=== PATIENT | female | born 1945 | race Caucasian/White ===

== ENCOUNTER 2018-09-26 11:22 | Emergency (ER) | payer MEDICARE, BC ==
--- NOTE | 2018-09-26 11:44 | UC ---
Lower Extremity/Ankle HPI - HPI Summary HPI Summary: 72 y/o female presents to the urgent care c/o pt states her lt ankle started to bother her about 3 weeks ago. pt had an xray and that was negative. pt states that she was told to take ibuprofen but her ankle still aches. pt has been going to chiropractor for the past 2 weeks and this has helped. pt states that it is difficult to walk. - History of Current Complaint Chief Complaint: UCLowerExtremity Stated Complaint: LT ANKLE INJURY Time Seen by Provider: 09/26/18 11:42 Hx Obtained From: Patient Pain Intensity: 7 - Allergies/Home Medications Allergies/Adverse Reactions: Allergies Allergy/AdvReac Type Severity Reaction Status Date / Time Penicillins Allergy Rash Verified 09/26/18 11:35 Home Medications: Home Medications Atorvastatin* [Lipitor*] 10 mg PO 1700 09/26/18 [History Confirmed 09/26/18] PMH/Surg Hx/FS Hx/Imm Hx - Surgical History Surgical History: Yes Surgery Procedure, Year, and Place: HYSTERECTOMY-AGE 26 - Family History Known Family History: Positive: Unknown - Social History Alcohol Use: Occasionally Substance Use Type: None Smoking Status (MU): Never Smoked Tobacco Physical Exam - Summary Physical Exam Summary: Vital Signs Reviewed: Yes General: well developed, well nourished obese female, sitting in the examining table w/o any apparent distress Eyes: Positive: Conjunctiva Clear - PERRLA, EOMI, ENT: Positive: Normal ENT inspection, Hearing grossly normal, Pharynx normal, TMs normal Neck: Positive: Supple, Nontender, No Lymphadenopathy Respiratory: Positive: Chest non-tender, Lungs clear, Normal breath sounds, No respiratory distress Cardiovascular: Positive: RRR, No Murmur, Pulses Normal, Brisk Capillary Refill Abdomen Description: Positive: Nontender, No Organomegaly, Soft. Negative: CVA Tenderness (R), CVA Tenderness (L) Bowel Sounds: Positive: Present Musculoskeletal: - Ankle: Pt is able to bear weight and ambulate w/ limping. The R ankle is without obvious asymmetry or deformity when compared to the L ankle. Decreased ROM due to pain. Moderate swelling at the lateral malleolus, with tenderness to palpation. No ecchymosis or bruising observed. Tenderness to palpation over the medial malleolus , no swelling observed. Talar tilt test is negative for ligament laxity to valgus or varus stress. Negative anterior drawer. Peroneal nerve is intact with strong eversion and plantar flexion. Positive sensation over the Rt foot and Rt ankle, positive pulses, capillary refill intact Neurological Exam: Normal Psychological Exam: Normal Skin: warm and dry Triage Information Reviewed: Yes Vital Signs: Initial Vital Signs Temp 98.4 F 09/26/18 11:30 Pulse 87 09/26/18 11:30 Resp 18 09/26/18 11:30 BP 185/78 09/26/18 11:30 Pulse Ox 99 09/26/18 11:30 Lower Extremity Course/Dx - Differential Dx/Diagnosis Provider Diagnosis: Left ankle tendonitis, Left ankle pain, Uncontrolled hypertension Discharge - Discharge Plan Condition: Stable Disposition: HOME Prescriptions: Naproxen TAB* [Naprosyn 250 mg TAB*] 250 mg PO Q8H PRN #30 tab PRN Reason: Pain Patient Education Materials: Tendinitis (ED) Referrals: Renan Santiago MD [Primary Care Provider] - 1 Week Ayaan Holt MD [Medical Doctor] - 1 Week Additional Instructions: 1-Please take Naproxen PO q8hrs prn after meals as directed to alleviate pain and swelling. 2-Please apply ice, keep your ankle immobilized with the splint. Avoid standing for long periods of ashley, elevate your ankle, avoid strenuous exercise. 3- Please f/u with Orthopedic Dr Holt or your PCP in 1 week is not improvement of symptoms for further evaluation and treatment. 4-Your BP is elevated today. Please take your BP medications and decrease salt in your diet, monitor BP and if it continues to be elevated please f/u with your PCP for further management. If you develop chest pain, dizziness, visual disturbances, SOB, or severe CANO please go immediately to the ER for further management - Billing Disposition and Condition Condition: STABLE Disposition: Home
== END 2018-09-26 12:05 | disposition home or self-care (01) ==
LOC: UCEAST 11:22
DX: M77.9 Enthesopathy, unspecified (principal); I10 Essential (primary) hypertension; Z88.0 Allergy status to penicillin
CPT/HCPCS: 99213; G0463

== ENCOUNTER 2019-03-20 11:35 | Emergency (ER) | payer MEDICARE, BC ==
[2019-03-20 11:58] VITALS: BP 176/80
--- NOTE | 2019-03-20 12:37 | UC ---
Ear Complaint HPI - HPI Summary HPI Summary: 73 yo female presents with LEFT earache. She tells me that this has been going on for about 2 weeks. Last week she saw her PCP and was given flonase for her symptoms. She has been using this with no relief. She feels some congestion in her sinuses, but mostly has popping in her left ear with decreased hearing and intermittent pain. She denies fever, chills, sore throat, cough. - History of Current Complaint Chief Complaint: UCEar Stated Complaint: EAR ACHE Time Seen by Provider: 03/20/19 12:31 Hx Obtained From: Patient Onset/Duration: Gradual Onset Severity Initially: Mild Severity Currently: Mild Pain Intensity: 2 Pain Scale Used: 0-10 Numeric - Allergies/Home Medications Allergies/Adverse Reactions: Allergies Allergy/AdvReac Type Severity Reaction Status Date / Time Penicillins Allergy Rash Verified 03/20/19 11:58 PMH/Surg Hx/FS Hx/Imm Hx Endocrine History: Dyslipidemia Cardiovascular History: Hypertension - Surgical History Surgical History: Yes Surgery Procedure, Year, and Place: HYSTERECTOMY-AGE 26 - Family History Known Family History: Positive: Unknown, Hypertension - Social History Lives: With Family Alcohol Use: Occasionally Substance Use Type: None Smoking Status (MU): Never Smoked Tobacco Review of Systems All Other Systems Reviewed And Are Negative: No Constitutional: Positive: Negative Skin: Positive: Negative Eyes: Positive: Negative ENT: Positive: Ear Ache Respiratory: Positive: Negative Cardiovascular: Positive: Negative Gastrointestinal: Positive: Negative Neurovascular: Positive: Negative Neurological: Positive: Negative Psychological: Positive: Negative Physical Exam - Summary Physical Exam Summary: GENERAL: NAD. WDWN. No pain distress. SKIN: No rashes, sores, lesions, or open wounds. HEENT: Head: AT/NC Eyes: EOM intact. Conjunctiva clear without inflammation or discharge. Ears: Hearing grossly normal. B/L TMs occluded by brown waxy cerumen. S/p irrigation: TMs intact and WNL. Nose: Nasal mucosa pink and moist. NTTP maxillary and frontal sinus. Throat: Posterior oropharynx without exudates, erythema, or tonsillar enlargement. Uvula midline. NECK: Supple. Nontender. No lymphadenopathy. CHEST: CTAB. No r/r/w. No accessory muscle use. Breathing comfortably and in no distress. CV: RRR. Without m/r/g. Pulses intact. Cap refill <2seconds NEURO: Alert. PSYCH: Age appropriate behavior. Triage Information Reviewed: Yes Vital Signs: Initial Vital Signs Temp 98.5 F 03/20/19 11:56 Pulse 71 03/20/19 11:56 Resp 17 03/20/19 11:56 BP 176/80 03/20/19 11:56 Pulse Ox 98 03/20/19 11:56 Vital Signs Reviewed: Yes Ear Complaint Course/Dx - Course Course Of Treatment: B/L cerumen impaction with complete resolution of symptoms s/p ear irrigation by nursing. TMs WNL and pt feels much better - Differential Dx/Diagnosis Provider Diagnosis: Cerumen impaction Discharge ED - Sign-Out/Discharge Documenting (check all that apply): Patient Departure All imaging exams completed and their final reports reviewed: No Studies - Discharge Plan Condition: Stable Disposition: HOME Patient Education Materials: Cerumen Impaction (ED) Referrals: Renan Santiago MD [Primary Care Provider] - Additional Instructions: If you develop a fever, shortness of breath, chest pain, new or worsening symptoms - please call your PCP or go to the ED immediately. Your blood pressure was high at todays visit. Please see your primary provider within 4 weeks for recheck and re-evaluation. - Billing Disposition and Condition Condition: STABLE Disposition: Home - Attestation Statements Provider Attestation: I was available for consult. This patient was seen by the AL. The patient was not presented to, seen by, or examined by me. -Lin
== END 2019-03-20 12:58 | disposition home or self-care (01) ==
LOC: UCEAST 11:35
DX: H61.22 Impacted cerumen, left ear (principal); E78.5 Hyperlipidemia, unspecified; I10 Essential (primary) hypertension; Z88.0 Allergy status to penicillin
CPT/HCPCS: 99213; G0463